=== PATIENT | female | born 1940 | race Caucasian/White ===

== ENCOUNTER → 2016-08-17 | Outpatient (CLI) | payer MEDICARE, BC ==
[~2016-08-17] MED LIST: AMOXICILLIN 50500 MG PO; ATIVAN 0.50.5 MG/TAB PO; CELEXA 20MG20 MG/TAB PO; CELEXA10 MG PO; LEVOXYL0.025 MG PO; NORCO 325 MG-51 TAB PO; NORCO 325 MG-7.1 TAB PO; PRAVACHOL 40MG40 MG PO; PYRIDIUM; SEPTRA DS 8001 TAB PO; ULTRAM 50MG TAB50 MG PO; VANCOCIN H125 MG/CAP PO; VANCOCIN H250 MG/CAP PO
== END ==
LOC: MC.RAD 10:40
DX: Z12.31 Encounter for screening mammogram for malignant neoplasm of breast (principal)

== ENCOUNTER 2018-01-11 08:00 | Outpatient (RCR) | payer MEDICARE, BC | END 2018-01-17 14:21 | disposition home or self-care (01) | LOC: MKS.ESL.PT 08:00 | DX: M54.5 Low back pain (principal); M79.1 Myalgia | CPT/HCPCS: G8978-GP; G8979-GP; G8980-GP ==

== ENCOUNTER → 2018-07-15 | Outpatient (CLI) | payer MEDICARE, BC | LOC: MC.RAD 08:00 | DX: Z12.31 Encounter for screening mammogram for malignant neoplasm of breast (principal) ==

== ENCOUNTER → 2019-09-01 | Outpatient (CLI) | payer MEDICARE, BC | LOC: MC.RAD 09:27 | DX: Z12.31 Encounter for screening mammogram for malignant neoplasm of breast (principal) ==

== ENCOUNTER 2020-06-20 14:02 | Emergency (ER) | payer MEDICARE, BC ==
[~2020-06-20] VITALS: Ht 157.5 cm; Wt 70.5 kg
[2020-06-20 14:10] VITALS: BP 106/86
[2020-06-20] MEDS ORDERED: ILOTYCIN5 MG/GM OP (14:52)
[2020-06-20 15:08] VITALS: PULSE 78
== END 2020-06-20 15:08 | disposition home or self-care (01) ==
LOC: COL.ER 14:02
DX: S05.02XA Injury of conjunctiva and corneal abrasion without foreign body, left eye, initial encounter (principal); E03.9 Hypothyroidism, unspecified; Z88.6 Allergy status to analgesic agent; Z88.2 Allergy status to sulfonamides; Z88.1 Allergy status to other antibiotic agents; Z79.890 Hormone replacement therapy; X58.XXXA Exposure to other specified factors, initial encounter

== ENCOUNTER 2020-06-28 10:00 | Outpatient (RCR) | payer MEDICARE, BC ==
[~2020-06-28 10:00] MED LIST changes: +ILOTYCIN5 MG/GM OP
== END 2020-07-08 | disposition home or self-care (01) ==
LOC: MKS.ESL.PT
DX: R42 Dizziness and giddiness (principal)

== ENCOUNTER 2020-08-09 12:45 | Outpatient (RCR) | payer MEDICARE, BC | END 2020-08-16 | disposition home or self-care (01) | LOC: MKS.ESL.PT | DX: R42 Dizziness and giddiness (principal) | CPT/HCPCS: G0283-GP ==

== ENCOUNTER → 2020-09-02 | Outpatient (CLI) | payer MEDICARE, BC | LOC: MC.RAD 09:38 | DX: Z12.31 Encounter for screening mammogram for malignant neoplasm of breast (principal) ==

== ENCOUNTER 2020-09-22 10:30 | Outpatient (RCR) | payer MEDICARE, BC | END 2020-09-22 12:43 | disposition home or self-care (01) | LOC: MKS.ESL.PT 10:30 | DX: R42 Dizziness and giddiness (principal); M54.5 Low back pain; G89.29 Other chronic pain; Z96.641 Presence of right artificial hip joint ==

== ENCOUNTER → 2021-09-19 | Outpatient (CLI) | payer MEDICARE, BC | LOC: MC.RAD 11:22 | DX: Z12.31 Encounter for screening mammogram for malignant neoplasm of breast (principal) ==

== ENCOUNTER → 2022-11-08 | Outpatient (CLI) | payer MEDICARE, BC | LOC: MC.RAD 11:15 | DX: Z12.31 Encounter for screening mammogram for malignant neoplasm of breast (principal) ==

== ENCOUNTER → 2024-02-27 | Outpatient (CLI) | payer MEDICARE, BC | LOC: MC.RAD 12:53 | DX: Z12.31 Encounter for screening mammogram for malignant neoplasm of breast (principal) ==

== ENCOUNTER 2024-06-06 08:32 | Outpatient (RCR) | payer MEDICARE, BC | END 2024-06-12 | disposition home or self-care (01) | LOC: MKS.ESL.PT | DX: M70.52 Other bursitis of knee, left knee (principal) ==